=== PATIENT | male | born 1960 | race Caucasian/White ===

== ENCOUNTER 2022-01-16 17:09 | Observation (INO) | payer BC ==
[~2022-01-16] VITALS: Ht 177.8 cm; Wt 87.1 kg
[2022-01-16 17:14] VITALS: BP 142/79
[2022-01-16] MEDS ORDERED: LIPITOR 10 MG10 M1 PO (17:22)
[2022-01-16] MEDS ORDERED: LISINOPRIL-HCT1 EACH PO (17:22)
[2022-01-16] MEDS ORDERED: PROBIOTIC1 EAC7 PO (17:22)
[2022-01-16] MEDS ORDERED: VAZALORE81 MG PO (17:22)
[2022-01-16 17:47] LABS: ABSOLUTE EOSINOPHILS 0.1 thou/uL (0.0-0.7); ABSOLUTE LYMPHOCYTES 2.3 thou/uL (0.8-5.3); ABSOLUTE MONOCYTES 0.8 thou/uL (0.0-1.2); ABSOLUTE NEUTROPHILS 7.5 thou/uL (1.6-8.1); BASOPHILS 0.4 %; EOSINOPHILS 0.6 %; HEMATOCRIT 44.7 % (42.0-52.0); HEMOGLOBIN 15.2 gm/dL (14.0-18.0); LYMPHOCYTES 21.9 %; MCH 29.4 pg (26.0-34.0); MCHC 33.9 g/dL (28.0-37.0); MCV 86.7 fL (80.0-100.0); MONOCYTES 7.4 %; MPV 6.8 fl. (7.2-11.1); NUCLEATED RBCS 0 /100WBC; PLATELET COUNT* 345 thou/uL (150-400); POLYS 69.7 %; RBC 5.16 mil/uL (4.50-6.00); RDW-CV 14.5 % (10.5-14.5); WBC 10.7 thou/uL (4.0-11.0)
[2022-01-16 17:57] LABS: CALCIUM 9.1 mg/dL (8.5-10.1); CREATININE 0.9 mg/dL (0.6-1.3); POTASSIUM 4.1 mmol/L (3.5-5.1)
[2022-01-16 18:08] LABS: ALBUMIN 3.9 g/dL (3.4-5.0); MAGNESIUM 2.3 mg/dL (1.8-2.4); TOTAL BILIRUBIN 0.6 mg/dL (<0.1-1.0); TOTAL PROTEIN 7.8 g/dL (6.4-8.2)
[2022-01-17] VITALS (7 sets, daily range): BP systolic 108–151; BP diastolic 46–76
--- NOTE | 2022-01-17 03:29 | NUR ---
PT ARRIVED TO THE UNIT AT 0100 FROM THE ER. A&O X 4. ON RA. NO C/O PAIN. UP AD REJI. IVF INFUISING ORDERED. NPO. CALL LIGHT WITHIN REACH. WILL CONTINUE TO MONITOR.
--- NOTE | 2022-01-17 09:28 | EKG ---
[place] [address] ELECTROCARDIOGRAM REPORT Name: CATHY CARLIN Room: [address] M.R.#: [id number] Admission: 01/16/22 Attend Phys: Pablito Granados Discharge: Date of : 62 Date of Service: 01/16/221717 Report #: [id number] THIS REPORT FOR: //name// [facility] ED Test Date: 2022-01-16 Test Time: 17:18:21 Pat Name: CATHY CARLIN Department: Room: [facility] Gender: M [employer] Supervisor: ELIZONDO : 1960 Requested By: Jake Martinez Order Number: [id number] MD: Casa Stratton Measurements Intervals [place] Rate: 66 P: 38 WI: 178 QRS: 34 QRSD: 95 T: 48 QT: 403 QTc: 423 Interpretive Statements Sinus rhythm RSR' in V1 or V2, right VCD No previous ECG available for comparison Electronically Signed On 01-17-2022 9:28:42 DIRECTOR FURNITURE by Casa Stratton [email or web address] <ELECTRONICALLY SIGNED> By: Casa Stratton MD, [facility] 01/17/22 0928 1718 1718 Casa Stratton MD, [facility] /EPI
--- NOTE | 2022-01-17 14:50 | EXE ---
[place] [address] STRESS ECHOCARDIOGRAM Name: CATHY CARLIN Room: [address] Martine#: [id number] Admission: 01/16/22 Attend Phys: Pablito Granados Discharge: Date of : 62 Date of Service: 01/17/22 1450 Report #: [id number] THIS REPORT FOR: cc: [facility] - Clinic physician unknown [facility] - Clinic physician unknown Casa Stratton MD [facility] ~ APPROVED REPORT Study performed: 01/17/2022 13:08:05 Exam: Stress Echocardiogram Indication: Chest pain Patient Location: In-Patient Stress Nurse: Ammy Li RN Room #: [facility] Supervising Physician: Casa Stratton MD Status: routine Ht: 5 ft 10 in HR: 72 bpm BP: 105/79 mmHg Rhythm: NSR Medical History Cardiac Risk Factors: Hyperlipidemia, HTN, Tobacco History (Current/Recent), age Procedure The patient underwent an Exercise Stress Test using the Reid Protocol. Blood pressure, heart rate, and EKG were monitored. An Echocardiogram was performed by hvac technician residential in four stages in quad fashion. At peak stress, four selected images were obtained and placed side by side with resting images for comparison. Stress Test Details Stress Test: Exercise stress testing was performed using a Reid protocol. HR Resting HR: 72 bpm Max Heart Rate (APMHR): 160 bpm Max HR Achieved: 140 bpm Target HR (85% APMHR): 136 bpm % of APMHR: 87 Recovery HR: 77 bpm HR response to stress: Normal [place] [address] STRESS ECHOCARDIOGRAM Name: CATHY CARLIN [address] [id number] Admission: 01/16/22 Attend Phys: Pablito Granados Discharge: Date of : 62 Date of Service: 01/17/22 1450 Report #: [id number] Resting BP: 105/79 mmHg Max BP: 175/85 mmHg Recovery BP: 143/71 mmHg BP response to stress: Normal blood pressure response to stress. ECG Resting ECG: Sinus rhythm Minor IVCD of the right type Stress ECG: No ischemic ST-T changes Arrhythmia: No arrhythmias noted Recovery ECG: No ischemic ST-T changes Recovery Arrhythmia: Rare isolated PACs and PVCs Clinical Reason for Termination: Maximal effort Exercise duration: 9 min 50 sec Highest Stage Achieved: Stage 4: 4.2 mph at 16% grade. Exercise capacity: 11.35 METs Pre-Stress Echo The resting Echocardiogram showed normal left ventricular contractility with an estimated Ejection Fraction of about 55-60%. Normal wall motion in all segments on baseline images. Post-Stress Echo The stress Echocardiogram showed normal left ventricular contractility with an estimated Ejection Fraction of about >70%. Normal augmentation of wall motion in all segments on post stress images. Conclusion Clinical Response: Non-ischemic Exercise Capacity: Above average Stress ECG Response: Non-ischemic Stress Echo Images: Non-ischemic Other Information Study Quality: Good <ELECTRONICALLY SIGNED> By: Casa Stratton MD, [facility] 01/17/22 1450 145 1450 Casa Stratton MD, FACC /INF
--- NOTE | 2022-01-17 16:58 | NUR ---
ASSUMED PT CARE AT 0730, PT AOX4, NO C/O PAIN, WORKED W/ CARDIOLOGY AND STRESS ECHO COMPLETE AND RESULTS IN CHART. DC ORDERS RECEIVED AND IV AND WEIGHT LOSS SALES CONSULTANT REMOVED. PT DC'D BY WC W/ NURSING STAFF AND ALL PAPERWORK AND PERSONAL BELONGINGS TO BROTHER'S VEHICLE AT APPROX 1625.
== END 2022-01-17 16:25 | disposition home or self-care (01) ==
LOC: M.ERS 17:09 → M.2W 21:46 → M.TBA-ER 21:46 → M.2W 01-17 01:26
PROVIDERS: Emergency Medicine Emergency Medical Services; ADMIT Internal Medicine; ATTEND Internal Medicine
DX: R07.89 Other chest pain (principal); Z20.822 Contact with and (suspected) exposure to COVID-19; I10 Essential (primary) hypertension; E78.5 Hyperlipidemia, unspecified; Z90.49 Acquired absence of other specified parts of digestive tract